=== PATIENT | female | born 1955 | race Caucasian/White ===

== ENCOUNTER 2017-11-14 21:02 | Emergency (ER) | payer BC ==
[~2017-11-14] VITALS: Ht 162.6 cm; Wt 66.1 kg
[~2017-11-14 21:02] MED LIST: PREDNISONE10 MG PO; PREDNISONE50 MG PO
[2017-11-14] MEDS ORDERED: PERCOCET 5/31 TABLET PO (23:54)
[2017-11-15 00:32] VITALS: BP 145/78
== END 2017-11-15 00:32 | disposition home or self-care (01) ==
LOC: EME 21:02
PROC: 0HQ3XZZ Repair Left Ear Skin, External Approach (ICD-10-PCS; principal; 2017-11-14)
DX: S01.319A Laceration without foreign body of unspecified ear, initial encounter (principal); W01.190A Fall on same level from slipping, tripping and stumbling with subsequent striking against furniture, initial encounter; Z88.8 Allergy status to other drugs, medicaments and biological substances
CPT/HCPCS: 99281; 99283